=== PATIENT | male | born 1965 | race Caucasian/White ===

== ENCOUNTER 2017-02-13 15:38 | Inpatient (IN) | payer BC ==
[~2017-02-13] VITALS: Ht 177.8 cm; Wt 89.9 kg
--- NOTE | 2017-02-14 09:26 | MH ---
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 HISTORY OF THE PRESENT ILLNESS The patient is a 51-year-old white male who presented to the office in September of 2015 complaining of pain about his left hip of acute onset unrelated to any unusual activity or injury. His medical history was noted to have been significant for having undergone a right total hip arthroplasty for history of aseptic necrosis at which time the patient describes his current symptoms as being similar to what he had noted in the past. His x-ray studies at that time were suggestive of some sclerotic density about the superior aspect of the femoral head but no obvious signs of collapse with residual joint space being noted. The patient was diagnosed as having a synovitis of his left hip with associated pain for which a recommendation was made to proceed with an MRI scan evaluation. Subsequent diagnostic testing identified a large area of osteonecrosis of the left femoral head with surrounding bony edema with no evidence of subarticular bone collapse. The patient elected to continue with conservative management at that time being followed on an outpatient basis. He became progressively more symptomatic with pain returning to the office in August of this past year reporting that he was having increasing difficulty conforming to weightbearing activities. He was taking ibuprofen 800 mg routinely for pain management. At that time the patient elected to proceed with a fluoroscopic intra-articular steroid injection that had given him some element of relief but unfortunately his symptoms gradually began to recur thereafter. He began taking tramadol 50 mg routinely for pain management. He returned to the office more recently indicating that he was having obvious increasing difficulties as related to all activities of daily living. His x-ray examination of the left hip revealed an obvious degenerative process with compromise of the joint space and early deformation of the femoral head. These findings were reviewed with emphasis being made that the decision to proceed with additional surgery would be left entirely to the patient's discretion. Lucas readily admitted that he had arrived at that point in time and given the favorable outcome that he had noted from previous surgery of his right hip, indicated his desire to proceed accordingly with similar treatment of his left hip. In compliance with his wishes he is currently being admitted in order that the above be accomplished. PAST MEDICAL HISTORY His past medical history, hospitalizations and surgeries in addition to his right total hip arthroplasty included: 1. A closed reduction of a dislocated left hip. 2. Excision of a pilonidal cyst. 3. Bilateral inguinal and umbilical herniorrhaphies with mesh insertion. 4. Cystoscopy and lithotripsy. The patient's medical illnesses and medications include: 1. Hypertension for which he takes enalapril 5 mg daily. 2. And he also takes simvastatin 20 mg daily. 3. Gabapentin 600 mg three times daily. 4. And an 81 mg aspirin tablet daily. ALLERGIES The patient denies any known drug allergies. REVIEW OF SYSTEMS No headache, seizure or syncope. No sinus congestion or epistaxis. Auditory acuity intact. No tinnitus. No bleeding gums or dysphagia. There is a presence of a dental bridge. No cough, shortness of breath, upper respiratory infection, pneumonia or tuberculosis. No angina or heart disease. He is medically managed for hypertension. Appetite good. Bowel movements regular. No hepatitis, gallbladder disease, ulcers or hemorrhoids. No urinary tract infection. He has a history of kidney stones, being status post lithotripsy. No history of fractures. No psychiatric illness. Remaining review of systems is unremarkable and noncontributory. The patient has been a partner relationship for many years. FAMILY HISTORY His family history is significant for diabetes, stroke and pancreatic cancer. 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 He completed an associates degree in education. Denies active use of tobacco for approximately 4 years but had been a minimal smoker in the past. Ethanol consumption socially. PHYSICAL EXAMINATION GENERAL: Height 5 feet 10 inches, weight 194 pounds. An alert, oriented responsive 51-year-old white male who sits quietly upon examination table with no apparent distress. HEENT: Pupils are equally round and reactive to light. Extraocular movements full. Sclerae clear. External nares clear. External auditory canals clear. Dental intact. Mucous membranes pink and moist. Pharynx clear. NECK: Supple. Active range of motion with no associated pain. Carotid pulse palpable bilaterally. Trachea midline. Thyroid without enlargement. LUNGS: Clear to auscultation and percussion. No CVA tenderness. No discomfort involving the dorsal lumbar spine. HEART: Regular rhythm. No murmur or gallop. ABDOMEN: Soft, nontender. Bowel sounds present. RECTAL: Per primary care physician. EXTREMITIES: Left hip no localizing tenderness along the lateral aspect of the hip adjacent to the greater trochanter. In a seated position there is restricted mobility of the hip joint being most pronounced with internal rotation and abduction maneuvering and pain at the extremes of motion. Straight-leg raising is negative at 80 degrees. Solitario sign is positive. Distal sensory grossly intact. Mild antalgic gait. NEUROLOGIC: Cranial nerves II-XII grossly intact. IMPRESSION Idiopathic aseptic necrosis left femoral head, pain left hip. PLAN Left total hip arthroplasty. The nature of the planned surgical procedure, the potential complications and risks associated, the expectations of surgery and the consent form were thoroughly reviewed with the patient prior to his admission to the hospital. Lucas has indicated his full understanding regarding all of the above and given consent to proceed with treatment as outlined. Medical evaluation and clearance for surgery will be completed by his primary care physician Dr. Lucas Dykes. MD YULISSA El/KK /4:55 PM /9:22 AM
[2017-02-19] MEDS ORDERED: ASPI1TAB69 PO (09:29)
[2017-02-19] MEDS ORDERED: SIMV10TA PO (09:29)
[2017-02-19] MEDS ORDERED: GABA600T PO (09:29)
[2017-02-19] MEDS ORDERED: ACET500C PO (09:29)
[2017-02-19] MEDS ORDERED: ENAL5TAB PO (09:29)
[2017-02-20] MEDS ORDERED: ceFAZolin 2 GM PREMIX 50 ML IV SCH (06:00)
[2017-02-20] MEDS ORDERED: METOPROLOL TARTRATE 25 MG TAB PO PRN (06:00)
[2017-02-20] MEDS ORDERED: POVIDONE IODINE 7.5% SCRUB 118 ML BOTTLE TOPICAL SCH (06:00)
[2017-02-20] MEDS ORDERED: SODIUM CHLORID 0.9% 500 ML IV PRN (06:00)
[2017-02-20] MEDS ORDERED: CHLORHEXIDINE GLUCONATE 2 % 1 PACK (2 CLOTHS) TOPICAL PRN (06:00)
[2017-02-20] MEDS ORDERED: TRANEXAMIC ACID 1 GM PRIOR TO PROCEDURE IV SCH ×2 (06:00)
[2017-02-20] MEDS ORDERED: LACTATED RINGER'S 1000 ML IV PRN (06:00)
[2017-02-20] MEDS ORDERED: INSULIN HUMAN REGULAR 1,000 UNITS/10 ML VIAL SQ PRN (06:00)
[2017-02-20] MEDS ORDERED: POVIDONE IODINE 5% (ANTISEPSIS KIT) 4 APPLICATIONS EACH NARE PRN (06:00)
[2017-02-20] MEDS ORDERED: ceFAZolin INJ 1,000 MG VIAL ONE (06:49)
[2017-02-20 06:55] VITALS: BP 137/79; PULSE 72; RESP 20; TEMP 98.3; O2SAT 96
[2017-02-20] MEDS ORDERED: MIDAZOLAM HCL 2 MG/2 ML VIAL ONE (07:06)
[2017-02-20] MEDS ORDERED: ACETAMINOPHEN 1000 MG/100 ML VIAL IV ONE (07:06)
[2017-02-20] MEDS ORDERED: FAMOTIDINE 20 MG/2 ML VIAL ONE (07:06)
[2017-02-20] MEDS ORDERED: TRANEXAMIC ACID 1 GM POST-OP IV SCH ×2 (09:00)
[2017-02-20] MEDS ORDERED: *morphine SULFATE 8 MG/ML PERIprocedure ONLY ONE ×3 (10:35→11:01)
[2017-02-20] MEDS ORDERED: fentaNYL CITRATE 250 MCG/5 ML AMP ONE ×2 (10:35→10:36)
[2017-02-20] MEDS ORDERED: MORPHINE SULFATE 4 MG/ML INJ ONE (10:36)
[2017-02-20] MEDS ORDERED: Post-op Orders (for Pharmacy) MISC XX ONE (10:45)
[2017-02-20] MEDS ORDERED: ZOLPIDEM TARTRATE 5 MG TAB PO PRN (10:45)
[2017-02-20] MEDS ORDERED: TRANEXAMIC ACID INJ 1,000 MG in SODIUM CHLORIDE 0.9% INJ 100 ML IV SCH (10:45)
[2017-02-20] MEDS ORDERED: SODIUM CHLORIDE 0.9% FLUSH 5 ML FLUSH IVF PRN (10:45)
[2017-02-20] MEDS ORDERED: NALOXONE HCL 0.4 MG/ML AMP IV PRN (10:45)
[2017-02-20] MEDS ORDERED: ACETAMINOPHEN/HYDROcodone 325 MG/5 MG TAB PO PRN (10:45)
[2017-02-20] MEDS ORDERED: ACETAMINOPHEN 325 MG TAB PO PRN (10:45)
[2017-02-20] MEDS ORDERED: MORPHINE SULFATE 30 MG/30 ML PCA IV SCH (10:45)
[2017-02-20] MEDS ORDERED: ONDANSETRON HCL 4 MG/2 ML VIAL IVP PRN (10:45)
[2017-02-20] MEDS ORDERED: MISCELLANEOUS PHARMACY INFORMATION XX ONE (11:00)
[2017-02-20] MEDS: DEXT 5%-NACL 0.45% 1000 ML INJ 1,000 ML IV SCH ×3 (11:00→23:21)
--- NOTE | 2017-02-20 11:29 | RADRPT ---
EXAM DATE/TIME: 02/20/2017 10:49 [facility] COMPARISON: No previous studies available for comparison. INDICATIONS : Post op left hip surgery. MEDICAL HISTORY : None. SURGICAL HISTORY : None. ENCOUNTER: Initial ACUITY: 1 day PAIN SCORE: 0/10 LOCATION: Left Hip. FINDINGS: Examination of the hip demonstrates no evidence of fracture or dislocation. Left hip arthroplasty. Po stsurgical changes with drain. CONCLUSION: Left hip arthroplasty. Russel Oconnell MD on February 20, 2017 at 11:24 Board Certified Radiologist. This report was verified electronically.
[2017-02-20 12:00] VITALS: BP 130/74; PULSE 70; RESP 16; TEMP 97.3; O2SAT 96
[2017-02-20] MEDS ORDERED: ePHEDrine/NS 25 MG/5 ML SYR IV ONE (12:05)
[2017-02-20] MEDS ORDERED: PROPOFOL 200 MG/20 ML AMP IV ONE (12:05)
[2017-02-20] MEDS ORDERED: NEOSTIGMINE 3 MG/3 ML SYR IV ONE (12:06)
[2017-02-20] MEDS ORDERED: KETOROLAC TROMETHAMINE 60 MG/2 ML (IM) VIAL IM ONE (12:06)
[2017-02-20] MEDS ORDERED: LACTATED RINGER'S 1000 ML INJ 1,000 ML IV ONE (12:06)
[2017-02-20] MEDS ORDERED: ONDANSETRON HCL 4 MG/2 ML VIAL IV PUSH ONE (12:06)
[2017-02-20] MEDS: PCA - TOTAL MG MORPHINE DELIVERED PER SHIFT SCH ×2 (14:00→21:45)
[2017-02-20 16:20] VITALS: BP 124/70; PULSE 74; RESP 16; TEMP 97.9; O2SAT 98
[2017-02-20 17:14] VITALS: O2SAT 96
--- NOTE | 2017-02-20 19:50 | MB ---
cc: MARISSA CEBALLOS DATE OF CONSULTATION: 02/20/2017 DATE OF : 1965 REASON FOR CONSULTATION Medical management. The patient is status post left total hip replacement. HISTORY OF PRESENT ILLNESS This is a pleasant 51-year-old white male who has been struggling with pain and some debility related to his left hip for the past couple of years. He states that the pain has been worse for the past six months and he has already had a right total hip replacement done four years ago. He decided to come on in and have the left total hip done. He has a known idiopathic aseptic necrosis of the left femoral head and pain in the left hip. The patient has comorbidities such as hypertension, hyperlipidemia, gastroesophageal reflux disease and others. We will assist in monitoring his medical management. Currently the patient denies any recent antibiotic use, he has had no fever. In the past the patient was diagnosed with synovitis of the left hip. Recommendations were made per Ortho to proceed with an MRI scan to evaluate. It was noted he had a large area of osteonecrosis of the left femoral head with surrounding bony edema. The patient did respond briefly to outpatient conservative treatment but did decide when the pain became worse and he could not tolerate his usual ADLs surgery was planned. PAST MEDICAL HISTORY 1. Hypertension. 2. Hyperlipidemia. 3. Gastroesophageal reflux disease. 4. Neuropathy. 5. Anemia. 6. Pilonidal cyst. 7. Kidney stones. PAST SURGICAL HISTORY 1. Four cystoscopies. 2. Two lithotripsies. 3. Three abdominal hernias and repair with mesh. 4. Closed reduction of a dislocated left hip. 5. Total left hip. 6. Previous total right hip. ALLERGIES NO KNOWN. MEDICATIONS 1. Simvastatin. 2. Gabapentin. 3. Aspirin. 4. Enalapril. SOCIAL HISTORY The patient has a partner who he currently lives with. He denies any tobacco. He does drink daily at least two drinks a day. He has no illicit drug use. REVIEW OF SYSTEMS A 12-point review was obtained, positives were noted in the History of Present Illness which included his pain, unable to do his usual mobility and ADLs without pain. Any other systems that were not noted are unremarkable at this time. PHYSICAL EXAMINATION VITAL SIGNS: Temperature is 98.2, pulse 95, respirations 16, blood pressure 122/61, O2 sat 98 nasal canula at 2 liters. GENERAL: A well-nourished white male, looks to be younger than his stated age, resting in the bed. Alert, oriented, cooperative. SKIN: His skin is warm and dry. His skin is pink. HEAD, EYES, EARS, NOSE AND THROAT: Atraumatic, normocephalic. PERRLA. Tongue is midline. Mucous membranes are slightly dry. NECK: Neck is supple. HEART: Heart sounds S1, S2. Regular, rate and rhythm. No murmurs, rubs or gallops. He has no edema in his lower extremities and his pulses are intact. PULMONARY: Essentially clear anteriorly and posteriorly with no wheezes, rales or rhonchi. ABDOMEN: Abdomen is round, soft, nontender, nondistended. Active bowel sounds in all four quadrants. MUSCULOSKELETAL: He moves his upper extremities with purpose and on command. 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 He can move his lower extremities with some guarding to the left hip area. His dressing is clean, dry and intact. NEUROLOGIC: He is alert and oriented. A good historian. Appropriate responses. Speech is clear. PSYCHIATRIC: Appropriate mood and affect. Judgment and insight is normal. LABORATORY DATA His lab data is on his paper chart preop. IMAGING STUDIES Left hip x-ray done showing left hip arthroplasty. ASSESSMENT 1. The patient had idiopathic aseptic necrosis of the left femoral head. He is status post left hip arthroplasty. 2. History of hypertension. 3. History of hyperlipidemia. 4. History of gastroesophageal reflux disease. 5. History of mild anemia. 6. Alcohol dependence. PLAN 1. Monitor his medical management. 2. We will follow his vital signs q.4. 3. IV pain meds and postop treatment regimen will be per his Ortho doc. 4. Medications have been reconciled. 5. He can have O2 p.r.n. 6. He is going to be monitored for alcohol withdrawal every 4 hours. 7. Abduction pillow in place. 8. The patient has been placed on Xarelto for DVT prophylaxis, SCDs. 9. A cold pack on his left hip. 10. Wound care. 11. Bowel regimen with routine Colace and laxatives if needed, this has been discussed with the patient for bowel movement in the next three days and to ask for medications if he needs it. 12. The patient has his pain management. 13. PPI. We will give him Pepcid for his PPI. 14. We will follow until discharge. The patient is planning on going home and doing his therapy on an outpatient basis. Thank you very much for this consult. DICTATED BY: Tatiana Garcia, MARTHA Marissa Ceballos MD JP/OBIE /3:46 PM /6:59 PM PT SEEN AND EXAMINED ABOVE CHART REVIEWED INCLUDING LABS MEDS AND NOTES AND RAD DATA DW PT PLAN OF CARE DW SOFTWARE SECURITY CONSULTANT URIEL RN SHIRAD
[2017-02-20 20:12] VITALS: BP 125/69; PULSE 99; RESP 19; TEMP 96.4; O2SAT 97
[2017-02-20] MEDS: SODIUM CHLORIDE 0.9% FLUSH 5 ML FLUSH IVF SCH (20:17)
[2017-02-20] MEDS: FAMOTIDINE 20 MG TAB PO SCH (20:21)
[2017-02-21 00:03] VITALS: BP 105/77; PULSE 100; RESP 18; TEMP 96.5; O2SAT 97
[2017-02-21 03:36] VITALS: BP 122/74; PULSE 86; RESP 18; TEMP 96.9; O2SAT 99
[2017-02-21] MEDS: PCA - TOTAL MG MORPHINE DELIVERED PER SHIFT SCH ×3 (05:07→22:00)
[2017-02-21 05:09] LABS: HEMATOCRIT 31.9 % (39.0-51.0); MEAN CELL VOLUME 96.2 FL (80.0-100.0); MEAN CORPUSCULAR HEMOGLOBIN 33.1 PG (27.0-34.0); MEAN CORPUSCULAR HGB CONC 34.4 % (32.0-36.0); PLATELET COUNT 199 TH/MM3 (150-450); RED BLOOD COUNT 3.31 MIL/MM3 (4.50-5.90); RED CELL DISTRIBUTION WIDTH 13.1 % (11.6-17.2); REVIEW FLAG FINAL; WHITE BLOOD COUNT 9.6 TH/MM3 (4.0-11.0)
[2017-02-21] MEDS: ACETAMINOPHEN/HYDROcodone 325 MG/5 MG TAB PO PRN ×5 (05:19→22:14)
[2017-02-21 05:37] LABS: BICARBONATE 25.2 MEQ/L (21.0-32.0); POTASSIUM 4.2 MEQ/L (3.5-5.1)
[2017-02-21 05:51] LABS: CALCIUM-PROTEIN CORRECTED 7.5 MG/DL (8.5-10.1)
[2017-02-21] MEDS ORDERED: ASPI325T PO (06:22)
[2017-02-21] MEDS ORDERED: HYDR-3516 PO (06:22)
--- NOTE | 2017-02-21 06:26 | HHI.FF ---
Face to Face Verification Diagnosis: (1) Avascular necrosis of bone of left hip Physical Therapy Gait training Hip: Total hip, Protocol: Left, Abduction pillow while in bed, Progress to weight bearing Left LE Weight Bearing: WB as tolerated Left LE Range of Motion: Active ROM Nursing Dressing Changes: Daily dressing change I have seen patient Lucas Diez on 02/21/17. My clinical findings support the need for the requested home health care services because: Limited ability to care for self High risk of falls I certify that my clinical findings support that this patient is homebound because: Post-op weakness Unsteady gait/balance Unsafe to leave home unassisted Maximiliano Nicholson MD February 21, 2017 06:25
[2017-02-21] MEDS ORDERED: COMMODE 3-IN-11 MIS (06:28)
[2017-02-21] MEDS ORDERED: WALKER WHEELS/F1 MIS (06:28)
[2017-02-21 08:00] VITALS: BP 111/75; PULSE 78; RESP 18; TEMP 97.2; O2SAT 99
[2017-02-21] MEDS: SODIUM CHLORIDE 0.9% FLUSH 5 ML FLUSH IVF SCH ×2 (09:00→21:00)
[2017-02-21] MEDS: FAMOTIDINE 20 MG TAB PO SCH ×2 (09:22→22:05)
[2017-02-21] MEDS: RIVAROXABAN 10 MG TAB PO SCH (09:33)
--- NOTE | 2017-02-21 09:50 | HHI.PR ---
Subjective Subjective Remarks Nausea and vomiting improved, but states that he doesn't like IV narcotics took Farnam this morning and has been doing well, pain is well-controlled No chest pain No shortness of breath No fever Has not been eating very much Review of Systems Constitutional Constitutional Remarks 12 point review of systems completed, negative except as noted above Vitals/Results Intake & Output 02/20/17 02/20/17 02/21/17 15:00 23:00 07:00 Intake Total 1700 ml 968 ml 1241 ml Output Total 510 ml 890 ml 600 ml Balance 1190 ml 78 ml 641 ml Intake Oral 480 ml IV Total 200 ml 968 ml 761 ml Other 1500 ml Output Urine Total 800 ml 500 ml Drainage Total 10 ml 90 ml 100 ml Estimated Blood Loss 500 ml Bladder Scan Volume Amount 327 ml # Voids 0 # Bowel Movements 0 Vital Signs Vital Signs Date Time Temp Pulse Resp B/P Pulse Ox O2 Delivery O2 Flow Rate FiO2 02/21/17 08:00 97.2 78 18 111/75 99 02/21/17 05:07 16 02/21/17 03:36 96.9 86 18 122/74 99 02/21/17 00:03 96.5 100 18 105/77 97 02/20/17 21:45 16 02/20/17 20:12 96.4 99 19 125/69 97 02/20/17 17:14 96 21 02/20/17 16:20 97.9 74 16 124/70 98 02/20/17 12:00 97.3 70 16 130/74 96 02/20/17 11:47 15 02/20/17 11:40 98.2 95 16 122/61 98 Nasal Cannula 2 02/20/17 11:28 15 02/20/17 11:00 92 16 127/65 96 Nasal Cannula 2 02/20/17 10:50 15 02/20/17 10:45 93 16 130/72 95 Nasal Cannula 2 02/20/17 10:40 15 02/20/17 10:30 95 16 135/73 100 Nasal Cannula 3 02/20/17 10:25 97.9 97 20 138/73 99 Nasal Cannula 3 CBC/BMP: 02/21/17 0438 02/21/17 0438 Lab Results Laboratory Tests Test 02/21/17 04:38 White Blood Count 9.6 TH/MM3 Red Blood Count 3.31 MIL/MM3 Hemoglobin 11.0 GM/DL Hematocrit 31.9 % Mean Corpuscular Volume 96.2 FL Mean Corpuscular Hemoglobin 33.1 PG Mean Corpuscular Hemoglobin 34.4 % Concent Red Cell Distribution Width 13.1 % Platelet Count 199 TH/MM3 Mean Platelet Volume 9.0 FL Sodium Level 134 MEQ/L Potassium Level 4.2 MEQ/L Chloride Level 98 MEQ/L Carbon Dioxide Level 25.2 MEQ/L Anion Gap 11 MEQ/L Blood Urea Nitrogen 14 MG/DL Creatinine 0.98 MG/DL Estimat Glomerular Filtration 81 ML/MIN Rate Random Glucose 135 MG/DL Calcium Level 7.1 MG/DL Protein Corrected Calcium 7.5 MG/DL Total Protein 6.4 GM/DL Physical Exam General General Appearance: Well Developed, Well Nourished, No Acute Distress, Comfortable Eyes Eye Exam: Pupils Equal, Pupils Reactive Ears & Nose Ears & Nose Exam: Nasal Mucosa [place] Throat Throat Exam: Oral Mucosa [place] & Moist Neck Neck Exam: Neck Supple, Trachea Midline Pulmonary Resp Exam: Clear Bilaterally Cardiology CV Exam: Regular Gastrointestinal/Abdomen GI Exam: Soft, Non-Tender, Bowel Sounds Present, Non-Distended Musculoskeletal MS Exam: Joints Intact MS Remarks Left hip dressing dry and intact Integumentary Skin Exam: Warm, Dry Extremeties Extremities Exam: No Edema, Pedal Pulses Palpable Neurologic Neuro Exam: Alert, Awake, Oriented, Speech Clear, Loft Worker Head Equal Psychiatric Psych Exam: Appropriate Responses VTE Prophylaxis VTE Prophylaxis Device: SCDs, TEDs VTE Remarks Xarelto Assessment/Plan Assessment/Plan 1. The patient had idiopathic aseptic necrosis of the left femoral head. He is status post left hip arthroplasty. 2. History of hypertension. 3. History of hyperlipidemia. 4. History of gastroesophageal reflux disease. 5. History of mild anemia. 6. Alcohol dependence. PLAN Continue postoperative orthopedic care Xarelto for DVT prophylaxis Physical therapy for evaluation and treatment Continue with pain management, okay to continue with oral narcotics. Antiemetics when necessary Continue with home medications Bowel regimen Labs reviewed, stable Pepcid for GI prophylaxis Xarelto for DVT prophylaxis Continue with above treatment Discussed with RN Discussed with Dr. Ceballos Discussed with patient This patient was seen by myself and Dr. Leal, this note is written on his behalf Rabia Angeles February 21, 2017 09:50
[2017-02-21] MEDS: DEXT 5%-NACL 0.45% 1000 ML INJ 1,000 ML IV SCH ×3 (11:00→22:07)
[2017-02-21 12:00] VITALS: BP 121/92; PULSE 100; RESP 18; TEMP 98.8; O2SAT 99
[2017-02-21 16:00] VITALS: BP 138/86; PULSE 107; RESP 18; TEMP 98.8; O2SAT 98
--- NOTE | 2017-02-21 18:04 | MP ---
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 PROCEDURE Left total hip arthroplasty. SURGEON Cruz Nicholson MD ANESTHESIA General endotracheal INDICATIONS A 51-year-old white male who presented to the undersigned physician in September of 2015 complaining of pain of his left hip unrelated to any activity or injury. His medical history at that time was noted to be significant for having undergone a right total hip arthroplasty for history of aseptic necrosis. The patient at that time was describing his symptoms as being similar in nature to what he had noted in the past. His x-ray studies were suggestive of some sclerotic density about the superior aspect of the femoral head but no obvious signs of collapse with residual joint space being noted. The patient was diagnosed as having synovitis of his left hip for which recommendation was made to proceed with an MRI scan. Subsequent diagnostic testing identified a large area of osteonecrosis of the left femoral head with surrounding bony edema with no evidence of subarticular bone collapse. The patient elected to continue with conservative management and was followed on an outpatient basis. He became progressively more symptomatic with pain returning to the office in August of this past year reporting that he was having increasing difficulty conforming to all weightbearing activities. He had been taking ibuprofen 800 mg routinely for pain management. At that time, the patient elected to proceed with a fluoroscopic intra-articular steroid injection that gave him some temporary relief, but gradually his pain began to recur. He began taking tramadol routinely for pain management. He returned to the office more recently indicating that he was having obviously increasing difficulties related to all activities of daily living. His x-ray examination of left hip revealed an obvious degenerative process with compromise of the joint space and early deformation of the femoral head. Findings were reviewed with emphasis being made that the decision to proceed with surgery would be left entirely to the patient's discretion. He readily admitted that he had arrived at that point in time and noting the favorable outcome that he had experienced from surgery of his right hip, he was desirous of proceeding with similar surgery of his left hip at this time. In compliance with his wishes, he was scheduled for admission at this time in order that total hip arthroplasty be accomplished. FORMAT Following induction of satisfactory general anesthesia by endotracheal intubation as completed per the Department of Anesthesia, the patient was positioned upon the operating table in a right lateral decubitus fashion. The left hip and lower extremity proper were isolated with a U drape thereafter being prepped with Betadine solution and draped into a sterile field in a routine manner. Prior to initiation of the actual procedure, the standard time-out protocol was completed, all parameters were appropriately addressed and confirmed by operating room personnel. A standard posterolateral approach to the hip was initiated through a sharp skin incision and developed through underlying subcutaneous tissue with hemostasis maintained by electrocautery. By deepening dissection, the fascia overlying the gluteus musculature was exposed and thereafter sharply incised at the limits of the incision. The underlying gluteus fibers were divided with the Bovie on cutting current. Progressive dissection facilitated exposure of the short external rotators structures. The piriformis tendon was utilized in anatomical landmark and, thereafter, division of these structures was completed in a superior to inferior orientation and reflected medially exposing the posterior capsule. The sciatic nerve was protected. An L-shaped capsulotomy was accomplished and immediately upon entering the joint space, a thick yellow necrotic type material was identified a specimen of which was immediately submitted to the lab for gram stain analysis, the results of which were negative for any evidence of bacterial contamination or white blood cell element. It was felt that the material was consistent with the aseptic necrotic process of the femoral head. the femoral head was thus dislocated from the confines of the acetabulum. Examination revealed severe degenerative changes with a complete separation of the articular covering of the head and exposed underlying subchondral bone of the femoral template was positioned for alignment orientation. The neck was scored and thereafter divided with power saw, the amputated segment being passed to the back table as surgical specimen. Attention was initially directed to the proximal femur. Cancellus bone was harvested. The tapered reamer was inserted for alignment orientation. Sequential rasping and broaching was accomplished from 11-13 mm with the calcar clovis being utilized at the 13 mm stage. The 13 mm stem was determined to be a favorable fit. The trial component being removed, attention was redirected to the acetabulum. The labrum and reactive soft tissue were sharply excised. Progressive reaming was accomplished from 50-57 mm. A trial reduction utilizing a 58 mm trial shell was completed with stability of the acetabular component being noted. The trial component being removed, the wound was copiously irrigated with pulsating antibiotic solution and hemostasis maintained by electrocautery. Harvested cancellous bone was digitally impacted into the depths of the acetabulum and thereafter a 58 mm continuum acetabular shell was firmly seated into the acetabulum in approximately 45 degrees inclination to the horizontal and slight anteversion. A single 25 mm 6.5 cancellous screw was inserted superiorly to augment fixation. The permanent high wall acetabular liner was attached to the acetabular shell. Attention was thereafter redirected to the proximal femur. The 13 mm trial femoral broach was repositioned and a trial reduction followed utilizing a 36 mm modular head with -6 mm neck length adapter. The hip readily reduced and was carried through a passive range of motion, stability demonstrated at 90 degrees flexion and 45 degrees internal rotation. An open dislocation was completed, the trial femoral components being removed. The canal was thoroughly irrigated and dried and thereafter the 13 mm standard femoral stem echo biometric configuration was firmly seated in the proximal femur. To this, a 36 mm ceramic head with -6 mm neck length adapter was attached. An open reduction completed and repeat range of motion again noted stability as previously described. Final irrigation was accomplished with hemostasis maintained. The posterior capsule was repaired with 0 Vicryl suture. Pyriformis tendon and short external rotators structures were reapproximated in a similar manner. Hemovac drain tubes were inserted through superior stab wounds. The fascia of the gluteus musculature was reapproximated with a running 0 Vicryl suture. The remaining portion of the wound was closed in layers in the routine manner. Skin margins being reapproximated with a running subcuticular 3-0 Vicryl suture over which Steri-Strips were applied. Xeroform gauze and a bulky dry sterile dressing were placed. The patient was repositioned into a supine orientation where an abduction splint was attached. Anesthesia was discontinued. He was thereafter transferred to the hospital bed and returned to recovery room in satisfactory condition having tolerated his operative procedure well. Estimated blood loss was estimated to be approximately 500 mL as determined per anesthesia. All femoral implants were of the [employer] senior credit officer. The acetabular components were A [employer] product. MD YULISSA El/ /10:26 AM /5:41 PM
[2017-02-21 19:00] VITALS: BP 139/92; PULSE 100; RESP 16; TEMP 99.1; O2SAT 98
[2017-02-22] VITALS: BP 143/92; PULSE 100; RESP 17; TEMP 98.4; O2SAT 99
[2017-02-22] MEDS: PCA - TOTAL MG MORPHINE DELIVERED PER SHIFT SCH (06:00)
[2017-02-22] MEDS: ACETAMINOPHEN/HYDROcodone 325 MG/5 MG TAB PO PRN ×4 (06:17→20:45)
[2017-02-22 08:00] VITALS: BP 129/75; PULSE 104; RESP 18; TEMP 98.4; O2SAT 97
[2017-02-22] MEDS: SODIUM CHLORIDE 0.9% FLUSH 5 ML FLUSH IVF SCH ×2 (09:00→20:46)
--- NOTE | 2017-02-22 09:25 | HHI.PR ---
Subjective Subjective Remarks pain well controlled no n/v no fever no cp no sob no bm yet Review of Systems Constitutional Constitutional Remarks 12 point review of systems completed, negative except as noted above Vitals/Results Intake & Output 02/21/17 02/21/17 02/22/17 15:00 23:00 07:00 Intake Total 1404 ml 480 ml 230 ml Output Total 1050 ml 750 ml 720 ml Balance 354 ml -270 ml -490 ml Intake Oral 980 ml 480 ml 230 ml IV Total 424 ml Output Urine Total 980 ml 700 ml 700 ml Drainage Total 70 ml 50 ml 20 ml # Bowel Movements 0 0 0 Vital Signs Vital Signs Date Time Temp Pulse Resp B/P Pulse Ox O2 Delivery O2 Flow Rate FiO2 02/22/17 08:00 98.4 104 18 129/75 97 02/22/17 06:00 18 02/22/17 00:00 98.4 100 17 143/92 99 02/21/17 22:00 18 02/21/17 19:10 Room Air 02/21/17 19:00 99.1 100 16 139/92 98 02/21/17 16:00 98.8 107 18 138/86 98 02/21/17 12:00 98.8 100 18 121/92 99 CBC/BMP: 02/21/17 0438 02/21/17 0438 Physical Exam General General Appearance: Well Developed, Well Nourished, No Acute Distress, Comfortable Eyes Eye Exam: Pupils Equal, Pupils Reactive Ears & Nose Ears & Nose Exam: Nasal Mucosa [place] Throat Throat Exam: Oral Mucosa [place] & Moist Neck Neck Exam: Neck Supple, Trachea Midline Pulmonary Resp Exam: Clear Bilaterally Cardiology CV Exam: Regular Gastrointestinal/Abdomen GI Exam: Soft, Non-Tender, Bowel Sounds Present, Non-Distended Musculoskeletal MS Exam: Joints Intact MS Remarks Left hip dressing dry and intact Integumentary Skin Exam: Warm, Dry Extremeties Extremities Exam: No Edema, Pedal Pulses Palpable Neurologic Neuro Exam: Alert, Awake, Oriented, Speech Clear, Chief Of Planning Equal Psychiatric Psych Exam: Appropriate Responses VTE Prophylaxis VTE Prophylaxis Device: SCDs, TEDs VTE Remarks Xarelto Assessment/Plan Assessment/Plan 1. The patient had idiopathic aseptic necrosis of the left femoral head. He is status post left hip arthroplasty. 2. History of hypertension. 3. History of hyperlipidemia. 4. History of gastroesophageal reflux disease. 5. History of mild anemia. 6. Alcohol dependence. PLAN Continue postoperative orthopedic care Xarelto for DVT prophylaxis Physical therapy for evaluation and treatment Continue with pain management, okay to continue with oral narcotics. Antiemetics when necessary Continue with home medications Bowel regimen Labs reviewed, stable Pepcid for GI prophylaxis Xarelto for DVT prophylaxis Continue with above treatment for poss dc tomorrow home with [facility] Discussed with RN Discussed with Dr. Ceballos Discussed with patient This patient was seen by myself and Dr. Ceballos, this note is written on his behalf Rabia Angeles February 22, 2017 09:25
[2017-02-22] MEDS: DOCUSATE SODIUM 100 MG CAP PO PRN (09:34)
[2017-02-22] MEDS: FAMOTIDINE 20 MG TAB PO SCH ×2 (09:35→20:45)
[2017-02-22] MEDS: DEXT 5%-NACL 0.45% 1000 ML INJ 1,000 ML IV SCH ×2 (09:35→16:21)
[2017-02-22] MEDS: RIVAROXABAN 10 MG TAB PO SCH (09:35)
[2017-02-22 12:00] VITALS: BP 132/98; PULSE 112; RESP 18; TEMP 98.1; O2SAT 97
[2017-02-22 16:00] VITALS: BP 140/86; PULSE 110; RESP 18; O2SAT 98
[2017-02-22 20:00] VITALS: BP 142/88; PULSE 100; RESP 18; TEMP 99.3; O2SAT 99
[2017-02-23] VITALS: BP 151/93; PULSE 83; RESP 18; TEMP 98.1; O2SAT 98
[2017-02-23] MEDS: DEXT 5%-NACL 0.45% 1000 ML INJ 1,000 ML IV SCH (03:28)
[2017-02-23] MEDS: DOCUSATE SODIUM 100 MG CAP PO PRN (05:36)
[2017-02-23] MEDS: ACETAMINOPHEN/HYDROcodone 325 MG/5 MG TAB PO PRN (05:36)
[2017-02-23 07:46] VITALS: BP 134/93; PULSE 126; RESP 18; TEMP 96.4; O2SAT 98
[2017-02-23] MEDS: FAMOTIDINE 20 MG TAB PO SCH (08:29)
[2017-02-23] MEDS: RIVAROXABAN 10 MG TAB PO SCH (08:33)
[2017-02-23] MEDS: SODIUM CHLORIDE 0.9% FLUSH 5 ML FLUSH IVF SCH (08:36)
--- NOTE | 2017-02-25 08:01 | MD ---
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 HISTORY A 51-year-old white male who had presented to the office in September of 2015 complaining of pain of the left hip of acute onset unrelated to unusual activity or specific injury. His medical history was noted to have been significant for having undergone a right total hip arthroplasty for history of aseptic necrosis and currently the patient was describing his symptoms as being similar to what he had noted in the past. His x-ray studies were suggestive of some sclerotic density about the superior aspect of the femoral head but no obvious signs of collapse with residual joint space being noted. The patient was diagnosed as having a synovitis of his left hip with associated pain for which a recommendation was made to proceed with an MRI scan. Subsequent diagnostic testing identified a large area of osteonecrosis of the left femoral head with surrounding bony edema but no evidence of subarticular bone collapse. The patient elected to continue with conservative management at that time being followed on outpatient basis. He became progressively more symptomatic with pain, returning to the office in August of this past year reporting that he was having increasing difficulty conforming to weightbearing activities. He had been taking ibuprofen 800 mg routinely for pain management. The patient elected to proceed with a fluoroscopic intraarticular steroid injection. It gave him a limited amount of relief for a short interval of time whereafter his symptoms gradually began to recur. He was taking tramadol for pain management. He returned to the office more recently indicating that he was having obviously increasing difficulties related to all activities of daily living. His current x-ray studies revealed an obvious degenerative process with compromise of the joint space and early deformation of the femoral head. Findings were reviewed with emphasis being made that the decision to proceed with surgery would be left entirely to the patient's discretion. Rayo readily admitted that he had arrived at that point in time and, noting the favorable outcome that he would experienced from the previous surgery of his right hip in association with the increasing incapacitation of pain involving his left hip, he expressed his desire to proceed with surgery at this time. In compliance with his wishes, he was scheduled for admission in order that left total hip replacement be completed. PREOPERATIVE PHYSICAL EXAMINATION His physical examination at the time of admission revealed no localizing tenderness along the lateral aspect of the left hip in a seated position there was restricted mobility of the hip joint especially involving internal rotation and abduction maneuvering with pain at the extremes of motion. Straight-leg raising was negative at 80 degrees. Solitario's sign positive. Distal sensory intact. Antalgic gait. HOSPITAL COURSE Prior to admission to the hospital the patient had undergone medical evaluation and clearance for surgery as completed by his primary care physician, Dr. Rayo Carmona. He was taken to the operating room on 20 Feb 2017 and on that date underwent a left total hip arthroplasty completed in an uncomplicated manner. The patient was noted to have tolerated his operative procedure well and his postoperative course was stable thereafter. Hemoglobin/hematocrit assessment postoperatively was 11 and 31.9 respectively. The patient was progressively mobilized under the guidance of physical therapy being permitted weightbearing to tolerance about the left lower extremity. Follow-up examination of his surgical wound was noted to be intact, healing favorably, no evidence of infection. Medical followup per the Hospitalist Service, DVT prophylaxis initiated. Mobile Application Tester consulted to assist with discharge planning. The patient had expressed his desire to be discharged home and continue his rehabilitation on an outpatient basis. Plans were finalized in this regard and pending medical clearance he was scheduled for discharge on the third postoperative day at which time he was noted to be making favorable progress with regards to his rehab program. He was scheduled to be seen in office followup in approximately four weeks. His condition at the time of discharge was stable and prognosis favorable. DISCHARGE MEDICATIONS 1. Hydrocodone 5/325, #60. 2. Aspirin 325 mg 1 tablet twice daily for four weeks, #60. MD YULISSA El/SSB /7:03 AM /7:51 AM
== END 2017-02-23 10:10 | disposition home health service (06) | DRG 470 ==
LOC: HSDI 02-20 05:33 → N06A 02-20 11:53
PROVIDERS: ADMIT Orthopaedic Surgery; ATTEND Orthopaedic Surgery
PROC: 0SRB0JA Replacement of Left Hip Joint with Synthetic Substitute, Uncemented, Open Approach (ICD-10-PCS; principal; 2017-02-20 07:15)
DX: M87.852 Other osteonecrosis, left femur (principal); Z96.641 Presence of right artificial hip joint; I10 Essential (primary) hypertension; E78.5 Hyperlipidemia, unspecified; M65.9 Synovitis and tenosynovitis, unspecified; K21.9 Gastro-esophageal reflux disease without esophagitis; F10.20 Alcohol dependence, uncomplicated; Z79.899 Other long term (current) drug therapy; Z87.442 Personal history of urinary calculi; Z87.891 Personal history of nicotine dependence
CPT/HCPCS: 73501; 80048; 84155; 85027; 86850; 86900; 86901; 87070; 87205; 88304; 88305; 88311; 94150; C1776; J0131; J0690; J1885; J2250; J2270; J2405; J2710; J3010; J7120